=== PATIENT | female | born 1945 | race Caucasian/White ===

== ENCOUNTER 2018-12-01 13:32 | Day surgery (SDC) | payer MEDICARE, MEDICAID ==
[~2018-12-01] VITALS: Ht 152.4 cm; Wt 65.9 kg
[~2018-12-01 13:32] MED LIST: ASPI-1265 PO; LEVO75TA PO; ROSU10TA PO
[2018-12-01 13:43] VITALS: BP 106/49
[2018-12-01] MEDS ORDERED: ATOR20TA66 PO (13:50)
[2018-12-01] MEDS ORDERED: ALB0.5UD NEB (13:51)
[2018-12-01] MEDS ORDERED: BISA10SU60 RC (13:53)
[2018-12-01] MEDS ORDERED: CALC300T4 PO (13:53)
[2018-12-01] MEDS ORDERED: ESCI5TAB12 PO (13:54)
[2018-12-01] MEDS ORDERED: CLOP75TA15 PO (13:54)
[2018-12-01] MEDS ORDERED: FAMO40TA7 PO (13:55)
[2018-12-01] MEDS ORDERED: NA P133E4 RC (13:57)
[2018-12-01] MEDS ORDERED: FURO-150 PO (13:58)
[2018-12-01] MEDS ORDERED: POTA20TA19 PO (13:58)
[2018-12-01] MEDS ORDERED: LEVO100T PO (13:59)
[2018-12-01] MEDS ORDERED: LOPE2CAP PO (14:00)
[2018-12-01] MEDS ORDERED: MAGN800O PO (14:01)
[2018-12-01] MEDS ORDERED: MULT1TAB74 PO (14:01)
[2018-12-01] MEDS ORDERED: PRED5TAB PO (14:02)
[2018-12-01] MEDS ORDERED: SUCR1TAB PO (14:03)
[2018-12-01] MEDS ORDERED: BUDE10.22 INH (14:03)
[2018-12-01] MEDS ORDERED: fentaNYL/PF 50MCG/1 ML 2ML syringe ONE (14:15)
[2018-12-01] MEDS ORDERED: MIDAZolam 5mg/5ml vial ONE (14:16)
[2018-12-01 14:58] VITALS: BP 109/73
[2018-12-01 15:08] VITALS: BP 109/64
[2018-12-01 15:18] VITALS: BP 107/52
== END 2018-12-01 15:35 | disposition home or self-care (01) ==
LOC: GI LAB 13:32
PROVIDERS: ATTEND Internal Medicine Gastroenterology
DX: D12.2 Benign neoplasm of ascending colon (principal); K64.8 Other hemorrhoids
CPT/HCPCS: 45380; G0500; J2250; J3010; J7030; 99152; 99153; A4620